=== PATIENT | female | born 1935 | race Caucasian/White ===

== ENCOUNTER → 2016-08-21 | Outpatient (CLI) | payer MEDICARE, BC | LOC: EMI 08-14 11:00 | DX: R41.3 Other amnesia (principal); Z53.9 Procedure and treatment not carried out, unspecified reason ==

== ENCOUNTER → 2016-09-04 | Outpatient (CLI) | payer MEDICARE, BC | LOC: EMI 12:55 | DX: R41.3 Other amnesia (principal); G31.9 Degenerative disease of nervous system, unspecified; R90.82 White matter disease, unspecified | CPT/HCPCS: 70551 ==